=== PATIENT | male | born 1990 | race Hispanic/Latino ===

== ENCOUNTER 2021-10-14 11:50 | Emergency (ER) | payer OTHER, SELFPAY ==
[2021-10-14 12:15] LABS: #Basophils 0.1 thou/uL (0.0-0.2); #Eosinphils 0.4 thou/uL (0.0-0.7); #Lymphocytes 3.3 thou/uL (1.20-3.40); #Monocytes 0.8 thou/uL (0.11-0.59); #Neutrophils 7.7 thou/uL (1.40-6.50); %Basophils 0.5 % (0.0-1.0); %Eosinophils 3.2 % (0.0-10.0); %Monocytes 6.1 % (0.0-10.0); %Neutrophils 63.2 % (42.0-75.0); Hemoglobin 15.9 g/dL (14.0-18.0); Mean Corpuscular HGB CONC 34.1 g/dL (32.0-36.0); Mean Corpuscular Hemoglobin 31.2 pg (27.0-31.0); Mean Corpuscular Volume 91.6 fL (78.0-98.0); Mean Platelet Volume 8.5 fL (7.4-10.4); Platelet Count 229 thou/uL (130-400); RBC Distribution Width 12.1 % (11.5-14.5); White Blood Cell (WBC) Count 12.2 thou/uL (4.8-10.8)
[2021-10-14 12:28] LABS: Prothrombin Time 13.2 sec (12.0-14.7)
[2021-10-14 12:37] LABS: ALT (SGPT) 61 U/L (8-55); AST (SGOT) 47 U/L (5-34); Albumin 4.1 g/dL (3.5-5.0); Alkaline Phosphatase 85 U/L (40-110); Anion Gap 15 mmol/L (10-20); BUN (Urea Nitrogen) 11 mg/dL (8.9-20.6); Bilirubin, Total 0.8 mg/dL (0.2-1.2); Calc. Creatinine Clearance 0 mL/min (70-130); Calcium 9.1 mg/dL (7.8-10.44); Carbon Dioxide 21 mmol/L (22-29); Chloride 107 mmol/L (98-107); Globulin 4.2 g/dL (2.4-3.5); Glucose 115 mg/dL (70-105); Potassium 3.8 mmol/L (3.5-5.1); Protein, Total 8.3 g/dL (6.0-8.3); Sodium 139 mmol/L (136-145)
[2021-10-14] MEDS ORDERED: ISOVUE-370 76%-LOCM 1 ML ONE (13:34)
[2021-10-14] MEDS ORDERED: Boostrix 0.5 ML (Tdap) VIAL ONE (13:58)
== END 2021-10-14 14:05 | disposition home or self-care (01) ==
LOC: ERS 11:50
DX: S00.81XA Abrasion of other part of head, initial encounter (principal); S00.01XA Abrasion of scalp, initial encounter; S60.812A Abrasion of left wrist, initial encounter; S50.811A Abrasion of right forearm, initial encounter; S80.212A Abrasion, left knee, initial encounter; S80.211A Abrasion, right knee, initial encounter; V48.0XXA Car driver injured in noncollision transport accident in nontraffic accident, initial encounter; Z23 Encounter for immunization
CPT/HCPCS: 70450; 71260; 72125; 74177; 80053; 85025; 85610; 85730; 90471; 90715; G0390; Q9966